=== PATIENT | female | born 1980 | race Caucasian/White ===

== ENCOUNTER 2018-04-19 08:39 | Emergency (ER) | payer MEDICAID, OTHER ==
[2018-04-19 08:40] VITALS: BMI 36.0
[2018-04-19 08:45] VITALS: O2SAT 100
--- NOTE | 2018-04-19 09:08 | ED PDOC ---
HPI: CCC, URI, Sore Throat Time Seen by Provider: 04/19/18 08:59 Chief Complaint (Nursing): Abdominal Pain History Per: Patient Onset/Duration Of Symptoms: Days (1) Current Symptoms Are (Timing): Still Present Location Of Pain: Ear(s), Throat Sick Contacts (Context): None Associated Symptoms: Sore Throat, Nausea, Diarrhea. denies: Fever Severity: Mild Additional Complaint(s): Right sided ear itching assoc with throat discomfort, nausea and diarrhea since yesterday. Denies fever or vomiting. Denies dysuria or frequency but has mild left flank discomfort. Past Medical History Vital Signs: Last Vital Signs Temp 98.2 F 04/19/18 08:45 Pulse 70 04/19/18 08:45 Resp 18 04/19/18 08:45 BP 113/74 04/19/18 08:45 Pulse Ox 100 04/19/18 09:09 - Medical History PMH: Anxiety, Asthma, Depression, Gastrointestinal Ulcer Denies: Diabetes, Hepatitis, HIV, HTN, Kidney Stones, Chronic Kidney Disease , Seizures, Sexually Transmitted Disease - Family History Family History: States: Unknown Family Hx - Immunization History Hx Tetanus Toxoid Vaccination: Yes Hx Influenza Vaccination: No Hx Pneumococcal Vaccination: No - Home Medications Home Medications: Ambulatory Orders Medication Instructions Recorded Famotidine [Pepcid] 20 mg PO Q12 #20 tab 04/19/18 Neomycin/Polymyxin/Hydrocortis 3 drop OT TID #1 bottle 04/19/18 [Cortisporin Otic Susp] Ondansetron [Zofran] 4 mg PO Q8H #10 tab 04/19/18 - Allergies Allergies/Adverse Reactions: Allergies Allergy/AdvReac Type Severity Reaction Status Date / Time EGG Allergy ITCHING Verified 01/28/18 05:15 Review of Systems Constitutional: Negative for: Fever ENT: Positive for: Ear Pain, Throat Pain Respiratory: Positive for: Cough Gastrointestinal: Positive for: Nausea, Diarrhea Genitourinary Female: Negative for: Dysuria, Frequency Physical Exam - Physical Exam Appears: Positive for: Non-toxic, No Acute Distress Skin: Positive for: Normal Color, Warm, DRY ENT: Positive for: Normal ENT Inspection Neck: Positive for: Normal, Painless ROM Cardiovascular/Chest: Positive for: Regular Rate, Rhythm Respiratory: Positive for: CNT, Normal Breath Sounds Gastrointestinal/Abdominal: Positive for: Bowel Sounds, Soft. Negative for: Tenderness Back: Negative for: L CVA Tenderness, R CVA Tenderness Extremity: Positive for: Normal ROM - ECG O2 Sat by Pulse Oximetry: 100 Disposition - Clinical Impression Clinical Impression: Otitis externa, URI (upper respiratory infection), Gastroenteritis - Patient ED Disposition Is Patient to be Admitted: No Counseled Patient/Family Regarding: Studies Performed, Diagnosis, Need For Followup, Rx Given - Disposition Referrals: [facility] [Outside] Disposition: Routine/Home Disposition Time: 10:14 Condition: FAIR Prescriptions: Famotidine [Pepcid] 20 mg PO Q12 #20 tab Neomycin/Polymyxin/Hydrocortis [Cortisporin Otic Susp] 3 drop OT TID #1 bottle Ondansetron [Zofran] 4 mg PO Q8H #10 tab Instructions: Outer Ear Infection (DC), Viral Upper Respiratory Infection, Adult (DC) Forms: [facility] ([place]ian)
[2018-04-19 10:27] VITALS: BP 124/78; PULSE 69; RESP 16; TEMP 98
== END 2018-04-19 10:20 | disposition home or self-care (01) ==
LOC: H.ER 08:39
DX: H60.90 Unspecified otitis externa, unspecified ear (principal); K52.9 Noninfective gastroenteritis and colitis, unspecified; Z86.59 Personal history of other mental and behavioral disorders; J45.909 Unspecified asthma, uncomplicated